=== PATIENT | female | born 1965 | race African-American/Black ===

== ENCOUNTER 2017-01-21 13:21 | Emergency (ER) | payer OTHER ==
[~2017-01-21] VITALS: Ht 157.5 cm; Wt 62.0 kg
[~2017-01-21 13:21] MED LIST: MECL-62 PO; NORT10CA PO; TRAM50TA PO; ZOFR4TAB PO
[2017-01-21] MEDS ORDERED: ALBUAER3 INH (13:32)
[2017-01-21 14:15] VITALS: BP 146/88; PULSE 89; RESP 18; TEMP 98.6; O2SAT 97
[2017-01-21] MEDS ORDERED: SODIUM CHLOR 0.9% 1000 ML INJ 1,000 ML IV SCH (14:20)
--- NOTE | 2017-01-21 14:25 | PD ---
HPI Chief Complaint: Cold / Flu Symptoms Time Seen by Provider: 14:22 Travel History International Travel<30 days: No Contact w/Intl Traveler<30days: No Traveled to known affect area: No History of Present Illness HPI 51-year-old female with a history of migraine headaches, fibromyalgia, Mnire' s disease, asthma presents to the emergency department for evaluation of productive cough for 1 week. The patient states that she is also had nasal congestion, runny nose, eye watering in the right eye, headache, fever, sore throat. States that she had a fever of 101F yesterday. States she has been taking ibuprofen and Tylenol with minimal improvement of symptoms. States that she has a history of migraine headaches and that the headache she has today is typical of her migraines. She also had multiple episodes of nonbloody nonbilious emesis this morning which prompted her to come to the emergency department. She denies any chest pain, shortness of breath, lightheadedness, abdominal pain, diarrhea, constipation, dysuria, weakness. Denies , status post hysterectomy. No other complaints. PFSH Past Medical History Arthritis: No Asthma: Yes Autoimmune Disease: Yes (FIBROMYALGIA) Blood Disorders: No Anxiety: No Depression: No Heart Rhythm Problems: No Cancer: No Cardiovascular Problems: Yes (HTN) High Cholesterol: No Chemotherapy: No Chest Pain: No Congestive Heart Failure: No COPD: No Cerebrovascular Accident: No Diabetes: No Diminished Hearing: No Endocrine: No Fibromyalgia: Yes Gastrointestinal Disorders: Yes GERD: No Glaucoma: No Genitourinary: No Headaches: Yes Hepatitis: No Hiatal Hernia: Yes Hypertension: Yes (NOT CURRENTLY ON MEDS) Immune Disorder: No Implanted Vascular Access Dvce: No Kidney Stones: Yes Medical other: Yes (PANCREATITIS , FIBROMYALGIA) Musculoskeletal: No Neurologic: No Psychiatric: No Reproductive: No Respiratory: Yes (ASTHMA) Immunizations Current: Yes Migraines: Yes Myocardial Infarction: No Pancreatitis: Yes Radiation Therapy: No Renal Failure: No Seizures: No Sickle Cell Disease: No Sleep Apnea: No Thyroid Disease: No Ulcer: No Tetanus Vaccination: > 5 Years Influenza Vaccination: Yes ?: Not LMP: UNK Menopausal: Yes : 5 Para: 4 Miscarriage: 1 Tubal Ligation: Yes Past Surgical History Abdominal Surgery: Yes (CHOL2005) AICD: No Cardiac Surgery: No Section: Yes (X4) Cholecystectomy: Yes Ear Surgery: No Endocrine Surgery: No Eye Surgery: No Genitourinary Surgery: No Gynecologic Surgery: Yes (C-SEC. X4, TOTAL HYSTERECTOMY) Hysterectomy: Yes (FULL) Joint Replacement: No Neurologic Surgery: No Oral Surgery: No Pacemaker: No Thoracic Surgery: No Other Surgery: Yes (2 SINUS SURGERIES) Social History Alcohol Use: No Tobacco Use: No Substance Use: No Allergies-Medications (Allergen,Severity, Reaction): Coded Allergies: Compazine (Verified Allergy, Severe, DYSTONIA, 01/21/17) Reglan (Verified Allergy, Severe, SLURRED SPEECH, 01/21/17) Morphine (Verified Adverse Reaction, Mild, Itching, 01/21/17) Reported Meds & Prescriptions Reported Meds & Active Scripts Active Reported Proair Hfa 8.5 GM Inh (Albuterol Sulfate) 90 Mcg/Act Aer 2 Puff INH Q4-6H PRN 108 mcg/actuation Zofran (Ondansetron HCl) 4 Mg Tab 4 Mg PO Q8HR PRN Meclizine (Meclizine HCl) 25 Mg Tab 25 Mg PO TID PRN Tramadol (Tramadol HCl) 50 Mg Tab 50 Mg PO QID PRN Review of Systems Except as stated in HPI: all other systems reviewed are Neg Physical Exam Narrative GENERAL: Well-nourished and well-developed pleasant patient in no acute distress who is nontoxic appearing. SKIN: Warm and dry. HEAD: Normocephalic and atraumatic. EYES: No injection, drainage, or hyphema noted. PERRLA. EOMI. ENT: No nasal drainage noted. Oropharynx is clear and the TMs are normal with good landmarks. NECK: Supple and the trachea is midline. CARDIOVASCULAR: Regular rate and rhythm. RESPIRATORY: Breath sounds are equal bilaterally with no accessory muscle use, wheezing, rhonchi, or crackles. GASTROINTESTINAL: Abdomen is soft, non-tender, and nondistended. MUSCULOSKELETAL: No obvious deformities, swelling, cyanosis, or ecchymosis is present throughout the upper and lower extremities. Patient has full range of motion without any signs of neurovascular compromise. NEUROLOGICAL: Awake, alert, and oriented. Normal speech and gait. Cranial nerves are grossly intact. Data Data Last Documented VS Vital Signs Date Time Temp Pulse Resp B/P Pulse Ox O2 Delivery O2 Flow Rate FiO2 01/21/17 14:46 69 16 138/84 98 Room Air 01/21/17 14:15 98.6 Orders Complete Blood Count With Diff (01/21/17 14:20) Comprehensive Metabolic Panel (01/21/17 14:20) Lipase (01/21/17 14:20) Iv Access Insert/Monitor (01/21/17 14:20) Ecg Monitoring (01/21/17 14:20) Oximetry (01/21/17 14:20) Ondansetron Inj (Zofran Inj) (01/21/17 14:30) Sodium Chlor 0.9% 1000 Ml Inj (Ns 1000 M (01/21/17 14:20) Sodium Chloride 0.9% Flush (Ns Flush) (01/21/17 14:30) Ketorolac Inj (Toradol Inj) (01/21/17 14:30) Group A Rapid Strep Screen (01/21/17 14:20) Influenzae A/B Antigen (01/21/17 14:20) Strep Culture (Group A) (01/21/17 13:35) Chest, Pa & Lat (01/21/17 15:14) Magnesium Sulfate 1 Gm Premix (Magnesium (01/21/17 16:15) Labs Laboratory Tests Test 01/21/17 14:30 White Blood Count 12.5 TH/MM3 Red Blood Count 4.50 MIL/MM3 Hemoglobin 13.1 GM/DL Hematocrit 40.5 % Mean Corpuscular Volume 89.9 FL Mean Corpuscular Hemoglobin 29.2 PG Mean Corpuscular Hemoglobin 32.5 % Concent Red Cell Distribution Width 14.0 % Platelet Count 371 TH/MM3 Mean Platelet Volume 7.6 FL Neutrophils (%) (Auto) 81.5 % Lymphocytes (%) (Auto) 11.3 % Monocytes (%) (Auto) 5.8 % Eosinophils (%) (Auto) 0.8 % Basophils (%) (Auto) 0.6 % Neutrophils # (Auto) 10.2 TH/MM3 Lymphocytes # (Auto) 1.4 TH/MM3 Monocytes # (Auto) 0.7 TH/MM3 Eosinophils # (Auto) 0.1 TH/MM3 Basophils # (Auto) 0.1 TH/MM3 CBC Comment DIFF FINAL Differential Comment Sodium Level 144 MEQ/L Potassium Level 4.0 MEQ/L Chloride Level 109 MEQ/L Carbon Dioxide Level 29.0 MEQ/L Anion Gap 6 MEQ/L Blood Urea Nitrogen 10 MG/DL Creatinine 0.90 MG/DL Estimat Glomerular Filtration 80 ML/MIN Rate Random Glucose 100 MG/DL Calcium Level 9.2 MG/DL Total Bilirubin 0.2 MG/DL Aspartate Amino Transf 20 U/L (AST/SGOT) Alanine Aminotransferase 20 U/L (ALT/SGPT) Alkaline Phosphatase 89 U/L Total Protein 7.9 GM/DL Albumin 3.8 GM/DL Lipase 119 U/L [facility] Medical Decision Making Medical Screen Exam Complete: Yes Emergency Medical Condition: Yes Differential Diagnosis Viral syndrome versus URI versus migraine headache versus strep versus influenza Narrative Course 51-year-old female resents to the emergency department for evaluation of cough and cold symptoms with migraine headache and a few episodes of vomiting. Patient is afebrile, vital signs are stable. Physical examination is essentially unremarkable. IV access is obtained, labs have been drawn and sent. Patient is administered IV fluids, Zofran and Toradol. CBC shows a slightly elevated white blood count 12.5. CMP is unremarkable. Influenza swab is negative. Stress is negative. Chest x-ray is negative for any acute abnormalities. Patient is reassessed and reports that she is still having a headache. Patient was administered magnesium 1 g IV with improvement of headache. I discussed all results with the patient. History and physical exam findings are consistent with a viral respiratory illness and migraine headache. Discussed supportive care. Patient is advised to follow up as outpatient with her PCP. Patient verbalizes understanding and agreement with treatment plan. I discussed the case with my attending physician Dr. Partida who is aware of the patients history, physical examination findings, and treatment plan. Diagnosis Primary Impression: Migraine headache Qualified Code: G43.709 - Chronic migraine without aura without status migrainosus, not intractable Additional Impression: Viral respiratory illness Referrals: Primary Care Physician Patient Instructions: General Instructions, Migraine Headache (ED), Viral Syndrome (ED) Additional Instructions: Rest. Follow-up with your Primary Care Physician. Return to the ED for any acute worsening of symptoms. Med/Other Pt SpecificInfo: No Change to Meds Disposition: 01 DISCHARGE HOME Condition: Stable Shireen Kebede January 21, 2017 14:25
[2017-01-21] MEDS ORDERED: ONDANSETRON HCL 4 MG/2 ML VIAL IVP ONE (14:30)
[2017-01-21] MEDS ORDERED: SODIUM CHLORIDE 0.9% FLUSH 10 ML FLUSH IV FLUSH PRN (14:30)
[2017-01-21] MEDS ORDERED: KETOROLAC TROMETHAMINE 30 MG/ML (IVP) VIAL IVP ONE (14:30)
[2017-01-21 14:44] VITALS: PULSE 75; RESP 18; O2SAT 98
[2017-01-21 14:46] VITALS: BP 138/84; PULSE 69; RESP 16; O2SAT 98
[2017-01-21 14:51] LABS: AUTOMATED NEUTROPHIL # 10.2 TH/MM3 (1.8-7.7); BASOPHIL # 0.1 TH/MM3 (0-0.2); BASOPHIL % 0.6 % (0.0-2.0); EOSINOPHIL # 0.1 TH/MM3 (0-0.4); EOSINOPHIL % 0.8 % (0.0-4.0); HEMATOCRIT 40.5 % (35.0-46.0); HEMO FLAGS DIFF FINAL; LYMPH % 11.3 % (9.0-44.0); LYMPHOCYTE # 1.4 TH/MM3 (1.0-4.8); MEAN CELL VOLUME 89.9 FL (80.0-100.0); MEAN CORPUSCULAR HEMOGLOBIN 29.2 PG (27.0-34.0); MEAN CORPUSCULAR HGB CONC 32.5 % (32.0-36.0); MONO % 5.8 % (0.0-8.0); NEUT % 81.5 % (16.0-70.0); PLATELET COUNT 371 TH/MM3 (150-450); WHITE BLOOD COUNT 12.5 TH/MM3 (4.0-11.0)
[2017-01-21 15:08] LABS: ANION GAP 6 MEQ/L (5-15); AST (GOT) 20 U/L (15-37); BLOOD UREA NITROGEN 10 MG/DL (7-18); CHLORIDE 109 MEQ/L (98-107); GLOMERULAR FILTRATION RATE 80 ML/MIN (>89); SODIUM (NA) 144 MEQ/L (136-145)
[2017-01-21 15:11] LABS: ALKALINE PHOSPHATASE 89 U/L (45-117); ALT (GPT) 20 U/L (10-53); TOTAL BILIRUBIN ADULT 0.2 MG/DL (0.2-1.0)
--- NOTE | 2017-01-21 15:56 | RADRPT ---
EXAM DATE/TIME: 01/21/2017 15:27 [facility] COMPARISON: No previous studies available for comparison. INDICATIONS : Cough, congestion, fever, cold symptoms for one week MEDICAL HISTORY : Hypertension. Renal calculi. Pancreatitis. bronchitis, migraine SURGICAL HISTORY : Cholecystectomy. Hysterectomy. section. tubal ligation, shoulder surgery ENCOUNTER: Initial ACUITY: 1 week PAIN SCORE: 0/10 LOCATION: Bilateral chest FINDINGS: The cardiac silhouette is normal in transverse diameter. The lungs are free of acute parenchymal opac ity. No effusions are identified. There is mild scoliotic deformity convex to the right. There are flores rgical clips in the right upper quadrant compatible with prior cholecystectomy. CONCLUSION: 1. No acute cardiopulmonary disease. Philip Montgomery MD on January 21, 2017 at 15:54 Board Certified Radiologist. This report was verified electronically.
[2017-01-21] MEDS ORDERED: MAGNESIUM SULFATE 1 GM PREMIX 100 ML IV ONE (16:15)
[2017-01-21 17:31] VITALS: BP 128/80
== END 2017-01-21 17:31 | disposition home or self-care (01) ==
LOC: NEPD 13:21
DX: G43.709 Chronic migraine without aura, not intractable, without status migrainosus (principal); B34.9 Viral infection, unspecified; R05 Cough; R09.81 Nasal congestion; H57.8 Other specified disorders of eye and adnexa; R50.9 Fever, unspecified; R11.10 Vomiting, unspecified; I10 Essential (primary) hypertension; Z86.69 Personal history of other diseases of the nervous system and sense organs; Z87.39 Personal history of other diseases of the musculoskeletal system and connective tissue; Z87.09 Personal history of other diseases of the respiratory system; Z86.79 Personal history of other diseases of the circulatory system; Z87.19 Personal history of other diseases of the digestive system
CPT/HCPCS: 71020; 80053; 83690; 85025; 87081; 87804; 87880; 96361; 96365; 96375; 99284; J1885; J2405; J3475; J7030

== ENCOUNTER 2017-04-30 08:58 | Emergency (ER) | payer OTHER ==
[~2017-04-30] VITALS: Ht 157.5 cm; Wt 65.0 kg
[~2017-04-30 08:58] MED LIST changes: +ALBUAER3 INH; -NORT10CA PO
[2017-04-30 09:06] VITALS: BP 124/75; PULSE 70; RESP 16; TEMP 97.6; O2SAT 100
[2017-04-30] MEDS ORDERED: SODIUM CHLOR 0.9% 1000 ML INJ 1,000 ML IV SCH (09:10)
[2017-04-30] MEDS ORDERED: HYDROmorphone HCL PF 1 MG/ML VIAL IVS ONE (09:15)
[2017-04-30] MEDS ORDERED: ONDANSETRON HCL 4 MG/2 ML VIAL IVP ONE (09:15)
[2017-04-30] MEDS ORDERED: SODIUM CHLORIDE 0.9% FLUSH 10 ML FLUSH IV FLUSH PRN (09:15)
[2017-04-30 09:16] VITALS: PULSE 69; RESP 18; O2SAT 100
--- NOTE | 2017-04-30 09:29 | PD ---
HPI Chief Complaint: Flank/Kidney Pain Time Seen by Provider: 09:06 Travel History International Travel<30 days: No Contact w/Intl Traveler<30days: No Traveled to known affect area: No History of Present Illness HPI This is a 51-year-old female who presents to the emergency department with left- sided flank discomfort, moderate severity, constant, associated with some pain in her left pelvis where she thinks her ovary would be that she does not have an ovary patient had a hysterectomy. Her pain is been going on for 3 days. She has been nauseous and has vomited several times. She denies any fevers or chills. She said she had some blood in her urine that she noticed yesterday and she has had some dysuria. She's had both urinary tract infections and kidney stones in the past. PFSH Past Medical History Arthritis: No Asthma: Yes Autoimmune Disease: Yes (FIBROMYALGIA) Blood Disorders: No Anxiety: No Depression: No Heart Rhythm Problems: No Cancer: No Cardiovascular Problems: Yes (HTN) High Cholesterol: No Chemotherapy: No Chest Pain: No Congestive Heart Failure: No COPD: No Cerebrovascular Accident: No Diabetes: No Diminished Hearing: No Endocrine: No Fibromyalgia: Yes Gastrointestinal Disorders: Yes GERD: No Glaucoma: No Genitourinary: No Headaches: Yes Hepatitis: No Hiatal Hernia: Yes Hypertension: Yes (NOT CURRENTLY ON MEDS) Immune Disorder: No Implanted Vascular Access Dvce: No Kidney Stones: Yes Medical other: Yes (PANCREATITIS , FIBROMYALGIA) Musculoskeletal: No Neurologic: No Psychiatric: No Reproductive: No Respiratory: Yes (ASTHMA) Immunizations Current: Yes Migraines: Yes Myocardial Infarction: No Pancreatitis: Yes Radiation Therapy: No Renal Failure: No Seizures: No Sickle Cell Disease: No Sleep Apnea: No Thyroid Disease: No Ulcer: No Tetanus Vaccination: < 5 Years Influenza Vaccination: No ?: Not Menopausal: Yes : 5 Para: 4 Miscarriage: 1 Ovarian Cysts: Yes Tubal Ligation: Yes Past Surgical History Abdominal Surgery: Yes AICD: No Cardiac Surgery: No Section: Yes (X4) Cholecystectomy: Yes Ear Surgery: No Endocrine Surgery: No Eye Surgery: No Genitourinary Surgery: No Gynecologic Surgery: Yes (C-SEC. X4, TOTAL HYSTERECTOMY) Hysterectomy: Yes (FULL) Joint Replacement: No Neurologic Surgery: No Oral Surgery: No Pacemaker: No Thoracic Surgery: No Other Surgery: Yes (2 SINUS SURGERIES) Social History Alcohol Use: No (PT DENIES) Tobacco Use: No Substance Use: No (PT DENIES ) Allergies-Medications (Allergen,Severity, Reaction): Coded Allergies: metoclopramide (Verified Allergy, Severe, SLURRED SPEECH, 04/30/17) prochlorperazine (Verified Allergy, Severe, DYSTONIA, 04/30/17) morphine (Verified Adverse Reaction, Intermediate, VOMITING, 04/30/17) Reported Meds & Prescriptions Reported Meds & Active Scripts Active Reported Proair Hfa 8.5 GM Inh (Albuterol Sulfate) 90 Mcg/Act Aer 2 Puff INH Q4-6H PRN 108 mcg/actuation Zofran (Ondansetron HCl) 4 Mg Tab 4 Mg PO Q8HR PRN Meclizine (Meclizine HCl) 25 Mg Tab 25 Mg PO TID PRN Tramadol (Tramadol HCl) 50 Mg Tab 50 Mg PO QID PRN Review of Systems Except as stated in HPI: all other systems reviewed are Neg Physical Exam Narrative GENERAL:Well appearing, no acute distress SKIN: Focused skin assessment warm and dry. HEAD: Atraumatic. Normocephalic. EYES: Pupils equal and round. No injection or drainage. ENT: Moist mucous membranes NECK: Trachea midline. CARDIOVASCULAR: Regular rate and rhythm. No murmur appreciated. RESPIRATORY: Clear to auscultation. Breath sounds equal bilaterally. GASTROINTESTINAL: Abdomen tender to palpation in the left lower quadrant with no rebound or guarding. : Left CVA tenderness. MUSCULOSKELETAL: No obvious deformities. NEUROLOGICAL: Awake and alert. No obvious cranial nerve deficits. Moving all extremities. PSYCHIATRIC: Appropriate mood and affect; insight and judgment normal. Data Data Last Documented VS Vital Signs Date Time Temp Pulse Resp B/P (MAP) Pulse Ox O2 Delivery O2 Flow Rate FiO2 04/30/17 10:29 97.9 74 16 139/66 (90) 100 Room Air Orders Orders Complete Blood Count With Diff (04/30/17 09:10) Comprehensive Metabolic Panel (04/30/17 09:10) Lipase (04/30/17 09:10) Urinalysis - C+S If Indicated (04/30/17 09:10) Ct Abd/Pel W/O Iv Contrast (04/30/17 09:10) Iv Access Insert/Monitor (04/30/17 09:10) Ecg Monitoring (04/30/17 09:10) Oximetry (04/30/17 09:10) Ondansetron Inj (Zofran Inj) (04/30/17 09:15) Sodium Chlor 0.9% 1000 Ml Inj (Ns 1000 M (04/30/17 09:10) Sodium Chloride 0.9% Flush (Ns Flush) (04/30/17 09:15) Hydromorphone Pf Inj (Dilaudid Pf Inj) (04/30/17 09:15) Labs Laboratory Tests Test 04/30/17 09:20 White Blood Count 7.9 TH/MM3 Red Blood Count 4.23 MIL/MM3 Hemoglobin 12.7 GM/DL Hematocrit 38.9 % Mean Corpuscular Volume 91.9 FL Mean Corpuscular Hemoglobin 30.0 PG Mean Corpuscular Hemoglobin Concent 32.7 % Red Cell Distribution Width 14.2 % Platelet Count 379 TH/MM3 Mean Platelet Volume 7.7 FL Neutrophils (%) (Auto) 59.0 % Lymphocytes (%) (Auto) 29.6 % Monocytes (%) (Auto) 9.0 % Eosinophils (%) (Auto) 2.0 % Basophils (%) (Auto) 0.4 % Neutrophils # (Auto) 4.7 TH/MM3 Lymphocytes # (Auto) 2.3 TH/MM3 Monocytes # (Auto) 0.7 TH/MM3 Eosinophils # (Auto) 0.2 TH/MM3 Basophils # (Auto) 0.0 TH/MM3 CBC Comment DIFF FINAL Differential Comment Urine Color YELLOW Urine Turbidity CLEAR Urine pH 5.5 Urine Specific [place] 1.018 Urine Protein NEG mg/dL Urine Glucose (UA) NEG mg/dL Urine Ketones NEG mg/dL Urine Occult Blood NEG Urine Nitrite NEG Urine Bilirubin NEG Urine Urobilinogen LESS THAN 2.0 MG/DL Urine Leukocyte Esterase SMALL Urine RBC LESS THAN 1 /hpf Urine WBC LESS THAN 1 /hpf Urine Squamous Epithelial Cells 3 /hpf Urine Hyaline Casts 1 /lpf Microscopic Urinalysis Comment CULT NOT INDICATED Blood Urea Nitrogen 15 MG/DL Creatinine 1.09 MG/DL Random Glucose 71 MG/DL Total Protein 7.3 GM/DL Albumin 3.6 GM/DL Calcium Level 8.3 MG/DL Alkaline Phosphatase 89 U/L Aspartate Amino Transf (AST/SGOT) 25 U/L Alanine Aminotransferase (ALT/SGPT) 31 U/L Total Bilirubin 0.2 MG/DL Sodium Level 139 MEQ/L Potassium Level 3.7 MEQ/L Chloride Level 106 MEQ/L Carbon Dioxide Level 25.7 MEQ/L Anion Gap 7 MEQ/L Estimat Glomerular Filtration Rate 64 ML/MIN Lipase 240 U/L [facility] Medical Decision Making Medical Screen Exam Complete: Yes Emergency Medical Condition: Yes Interpretation(s) Afebrile, no tachycardia, normotensive No leukocytosis Electrolytes are reassuring Urinalysis: No infection CT abdomen and pelvis: No acute process Differential Diagnosis Urinary tract infection, pyelonephritis, nephrolithiasis, musculoskeletal strain Narrative Course This is a 51-year-old female who presents to the emergency department with left- sided pelvic pain radiating to the left back. She has a history of kidney stones and infection in the past. She is placed in a monitor and an IV was established. Labs are obtained which were all reassuring. Urinalysis demonstrates no infection or blood. CT abdomen and pelvis is reassuring. I don 't think she has no emergent etiology of her pain. It may be musculoskeletal. She is discharged on anti-inflammatory's. Diagnosis Primary Impression: Flank pain Patient Instructions: General Instructions Additional Instructions: If you develop severe or worsening abdominal pain, fever>100.4, persistent vomiting or inability to eat or drink return to the emergency department immediately. Follow up with your primary care physician in 1-2 days for a check-up. Med/Other Pt SpecificInfo: Prescription(s) given Scripts Naproxen (Naproxen) 500 Mg Tab 500 MG PO BID Y for PAIN SCALE 4 TO 10, #20 TAB 0 Refills Prov: Delfina Koch MD 04/30/17 Disposition: 01 DISCHARGE HOME Condition: Stable Delfina Koch MD Apr 30, 2017 09:29
[2017-04-30 09:44] LABS: AUTOMATED NEUTROPHIL # 4.7 TH/MM3 (1.8-7.7); BASOPHIL % 0.4 % (0.0-2.0); EOSINOPHIL # 0.2 TH/MM3 (0-0.4); HEMATOCRIT 38.9 % (35.0-46.0); HEMO FLAGS DIFF FINAL; LYMPH % 29.6 % (9.0-44.0); LYMPHOCYTE # 2.3 TH/MM3 (1.0-4.8); MEAN CELL VOLUME 91.9 FL (80.0-100.0); MEAN CORPUSCULAR HGB CONC 32.7 % (32.0-36.0); PLATELET COUNT 379 TH/MM3 (150-450); RED BLOOD COUNT 4.23 MIL/MM3 (4.00-5.30); RED CELL DISTRIBUTION WIDTH 14.2 % (11.6-17.2); WHITE BLOOD COUNT 7.9 TH/MM3 (4.0-11.0)
[2017-04-30 09:53] LABS: BLOOD, URINE NEG (NEG); GLUCOSE,URINE NEG (NEG); HYALINE CAST, URINE 1 /lpf (RARE); KETONE, URINE NEG (NEG); NITRITE,URINE NEG (NEG); PH, URINE 5.5 (5.0-8.5); SQUAMOUS EPITHELIAL CELL URINE 3 /hpf (0-5); URINE COLOR YELLOW (YELLW/STRAW)
[2017-04-30 09:55] LABS: ANION GAP 7 MEQ/L (5-15); AST (GOT) 25 U/L (15-37); BICARBONATE 25.7 MEQ/L (21.0-32.0); BLOOD UREA NITROGEN 15 MG/DL (7-18); CHLORIDE 106 MEQ/L (98-107); GLOMERULAR FILTRATION RATE 64 ML/MIN (>89); POTASSIUM 3.7 MEQ/L (3.5-5.1); SODIUM (NA) 139 MEQ/L (136-145)
[2017-04-30 09:57] LABS: ALT (GPT) 31 U/L (10-53)
[2017-04-30 09:59] LABS: ALKALINE PHOSPHATASE 89 U/L (45-117); TOTAL BILIRUBIN ADULT 0.2 MG/DL (0.2-1.0)
[2017-04-30 10:02] LABS: COMMENT (UR) CULT NOT INDICATED; CULTURE IF INDICATED CULT NOT INDICATED
[2017-04-30 10:29] VITALS: BP 139/66; PULSE 74; RESP 16; TEMP 97.9; O2SAT 100
--- NOTE | 2017-04-30 10:34 | RADRPT ---
EXAM DATE/TIME: 04/30/2017 09:46 [facility] COMPARISON: No previous studies available for comparison. INDICATIONS : Left flank pain, nausea and vomiting. ORAL CONTRAST: No oral contrast ingested. RADIATION DOSE: 6.06 CTDIvol (mGy) MEDICAL HISTORY : Pancreatitis. Hernia, hiatal. Renal calculi. SURGICAL HISTORY : Hysterectomy. Cholecystectomy. section. ENCOUNTER: Initial ACUITY: 3 days PAIN SCALE: 7/10 LOCATION: Left flank TECHNIQUE: Volumetric scanning of the abdomen and pelvis was performed. Using automated exposure control and ad justment of the mA and/or kV according to patient size, radiation dose was kept as low as reasonably achievable to obtain optimal diagnostic quality images. DICOM format image data is available electro nically for review and comparison. FINDINGS: LOWER LUNGS: The visualized lower lungs are clear. LIVER: Homogeneous density without lesion. There is no dilation of the biliary tree. Gallbladder surgically absent. SPLEEN: Normal size without lesion. PANCREAS: Within normal limits. KIDNEYS: Normal in size and shape. There is no mass, stone, or hydronephrosis. ADRENAL GLANDS: Within normal limits. VASCULAR: There is no aortic aneurysm. BOWEL/MESENTERY: The stomach, small bowel, and colon demonstrate no acute abnormality. There is no free intraperitone al air or fluid. ABDOMINAL WALL: Within normal limits. RETROPERITONEUM: There is no lymphadenopathy. BLADDER: No wall thickening or mass. REPRODUCTIVE: Within normal limits. INGUINAL: There is no lymphadenopathy or hernia. MUSCULOSKELETAL: Within normal limits for patient age. CONCLUSION: No evidence of kidney stones or hydronephrosis Bruno Kulkarni MD on April 30, 2017 at 10:29 Board Certified Radiologist. This report was verified electronically.
[2017-04-30] MEDS ORDERED: NAPR500T PO (10:42)
[2017-04-30 10:54] VITALS: BP 122/81; TEMP 97.8
[2017-04-30 13:48] LABS: CHLAMYDIA PCR NOT DETECTED (NOT DETECT); NEISSERIA PCR NOT DETECTED (NOT DETECT)
== END 2017-04-30 10:54 | disposition home or self-care (01) ==
LOC: NEPC 08:58
DX: R10.9 Unspecified abdominal pain (principal); R10.2 Pelvic and perineal pain; M54.9 Dorsalgia, unspecified; R11.2 Nausea with vomiting, unspecified; R31.9 Hematuria, unspecified; R30.0 Dysuria; J45.909 Unspecified asthma, uncomplicated; M79.7 Fibromyalgia; I10 Essential (primary) hypertension
CPT/HCPCS: 74176; 80053; 81001; 83690; 85025; 87210; 87491; 87591; 96361; 96374; 96375; 99285; J1170; J2405; J7030

== ENCOUNTER 2017-06-20 10:24 | Emergency (ER) | payer OTHER ==
[~2017-06-20] VITALS: Ht 157.5 cm; Wt 66.0 kg
[~2017-06-20 10:24] MED LIST changes: +NAPR500T PO
[2017-06-20 10:26] VITALS: BP 132/86; PULSE 69; RESP 15; TEMP 98.4; O2SAT 98
--- NOTE | 2017-06-20 12:02 | PD ---
HPI Chief Complaint: Musculoskeletal Complaint Time Seen by Provider: 11:47 Travel History International Travel<30 days: No Contact w/Intl Traveler<30days: No Traveled to known affect area: No History of Present Illness HPI 51-year-old female presents to the emergency room for evaluation of acute on chronic left shoulder pain. Patient states about one year ago she had 2 surgeries on her shoulder. The first was to fix the rotator cuff and the second to fix tear in the labrum as well as remove the cyst. Patient was doing well until about 3 days ago when she woke up with severe left shoulder pain. Pain is localized to the left anterior humeral head with radiation posteriorly. It is worse with any range of motion, especially if she lifts her arm overhead. Denies trauma or injury. She denies paresthesias. States any movement causes pain to radiate down her left arm. Patient denies any chest pain or shortness of breath. States she takes a deep breath, it makes her pain worse. She has been taking ibuprofen and her prescribed tramadol for pain without significant relief in symptoms. She came to the emergency room hoping to get an MRI of her shoulder. She takes tramadol for fibromyalgia and meclizine for vertigo. PFSH Past Medical History Arthritis: No Asthma: Yes Autoimmune Disease: Yes (FIBROMYALGIA) Blood Disorders: No Anxiety: No Depression: No Heart Rhythm Problems: No Cancer: No Cardiovascular Problems: Yes (HTN) High Cholesterol: No Chemotherapy: No Chest Pain: No Congestive Heart Failure: No COPD: No Cerebrovascular Accident: No Diabetes: No Diminished Hearing: No Endocrine: No Fibromyalgia: Yes Gastrointestinal Disorders: Yes GERD: No Glaucoma: No Genitourinary: No Headaches: Yes Hepatitis: No Hiatal Hernia: Yes Hypertension: Yes (NOT CURRENTLY ON MEDS) Immune Disorder: No Implanted Vascular Access Dvce: No Kidney Stones: Yes Musculoskeletal: No Neurologic: No Psychiatric: No Reproductive: No Respiratory: Yes (ASTHMA) Immunizations Current: Yes Migraines: Yes Myocardial Infarction: No Pancreatitis: Yes Radiation Therapy: No Renal Failure: No Seizures: No Sickle Cell Disease: No Sleep Apnea: No Thyroid Disease: No Ulcer: No ?: Unknown Menopausal: Yes : 5 Para: 4 Miscarriage: 1 Ovarian Cysts: Yes Tubal Ligation: Yes Past Surgical History Abdominal Surgery: Yes AICD: No Cardiac Surgery: No Section: Yes (X4) Cholecystectomy: Yes Ear Surgery: No Endocrine Surgery: No Eye Surgery: No Genitourinary Surgery: No Gynecologic Surgery: Yes (C-SEC. X4, TOTAL HYSTERECTOMY) Hysterectomy: Yes (FULL) Joint Replacement: No Neurologic Surgery: No Oral Surgery: No Pacemaker: No Thoracic Surgery: No Other Surgery: Yes (2 SINUS SURGERIES) Social History Alcohol Use: No (PT DENIES) Tobacco Use: No Substance Use: No (PT DENIES ) Allergies-Medications (Allergen,Severity, Reaction): Coded Allergies: metoclopramide (Verified Allergy, Severe, SLURRED SPEECH, 06/20/17) prochlorperazine (Verified Allergy, Severe, DYSTONIA, 06/20/17) morphine (Verified Adverse Reaction, Intermediate, VOMITING, 06/20/17) Reported Meds & Prescriptions Reported Meds & Active Scripts Active Reported Proair Hfa 8.5 GM Inh (Albuterol Sulfate) 90 Mcg/Act Aer 2 Puff INH Q4-6H PRN 108 mcg/actuation Zofran (Ondansetron HCl) 4 Mg Tab 4 Mg PO Q8HR PRN Meclizine (Meclizine HCl) 25 Mg Tab 25 Mg PO TID PRN Tramadol (Tramadol HCl) 50 Mg Tab 50 Mg PO QID PRN Review of Systems Except as stated in HPI: all other systems reviewed are Neg Physical Exam Narrative GENERAL: Well-nourished, well-developed female in no acute distress. Afebrile. Ambulatory. SKIN: Focused skin assessment warm/dry. HEAD: Normocephalic. EYES: No scleral icterus. No injection or drainage. NECK: Supple, trachea midline. No JVD or lymphadenopathy. CARDIOVASCULAR: Regular rate and rhythm without murmurs, gallops, or rubs. RESPIRATORY: Breath sounds equal bilaterally. No accessory muscle use. MUSCULOSKELETAL: No cyanosis. No edema. Limited abduction and internal and external rotation of the shoulder secondary to pain. 2+ radial pulse. Radial, ulnar, and median nerves intact. Strength 5/5 extremity. Tenderness to palpation of left anterior humeral head. Data Data Last Documented VS Vital Signs Date Time Temp Pulse Resp B/P (MAP) Pulse Ox O2 Delivery O2 Flow Rate FiO2 06/20/17 10:26 98.4 69 15 132/86 (101) 98 MDM Medical Decision Making Medical Screen Exam Complete: Yes Emergency Medical Condition: Yes Medical Record Reviewed: Yes Differential Diagnosis Chronic pain, arthritis, calcific tendinopathy, tendinitis, rotator cuff injury , extrinsic etiology unlikely Narrative Course 51-year-old female presents to the emergency room for evaluation of acute on chronic left shoulder pain. Patient had 2 surgeries in her shoulder one year ago. States she woke up with pain 4 days ago. She has been taking over-the- counter ibuprofen and prescribed tramadol without any relief. Denies paresthesias, trauma, or injury. Left upper extremity is neurovascularly intact with 2+ radial pulse. Radial, ulnar, and median nerves intact. There is extreme tenderness to palpation of the left anterior humeral head. Limited range of motion secondary to pain. Patient can abduct to approximately 90; anything over the head is too painful. Likely tendinitis, arthritis, or reinjury of the rotator cuff. Patient was given a sling for the next few days but highly encouraged to maintain range of motion to prevent frozen shoulder. States she has had that in the past and knows to continue moving the shoulder. She was told to follow-up with her orthopedist or primary care physician for outpatient imaging or return for worsening symptoms. She understands and agrees to plan. Diagnosis Primary Impression: Left shoulder pain Qualified Codes: M25.512 - Pain in left shoulder Referrals: Orthopedist Additional Instructions: Rest and drink plenty of fluids. Use sling for the next 2 days. Do not use for greater than 2 days to prevent worsening of shoulder pain. Take ibuprofen with food as directed, as needed for pain. Apply ice to the affected area for 20 minutes at a time, as needed for pain and swelling. Follow-up with a primary care physician. Return to the emergency room for worsening symptoms. Disposition: 01 DISCHARGE HOME Condition: Stable Jyoti Avila Jun 20, 2017 12:01
== END 2017-06-20 12:25 | disposition home or self-care (01) ==
LOC: NEPK 10:24
DX: M25.512 Pain in left shoulder (principal); G89.29 Other chronic pain; M79.7 Fibromyalgia
CPT/HCPCS: 99282

== ENCOUNTER 2018-01-28 14:39 | Emergency (ER) | payer OTHER ==
[~2018-01-28 14:39] MED LIST changes: -NAPR500T PO
[2018-01-28 14:53] VITALS: BP 146/77; PULSE 88; RESP 17; TEMP 99.1; O2SAT 99
[2018-01-28 15:23] VITALS: BP 133/81; PULSE 70; RESP 18; O2SAT 97
[2018-01-28] MEDS ORDERED: methylPREDNISolone SOD SUCC 125 MG/2 ML VIAL IV PUSH ONE (15:30)
[2018-01-28] MEDS ORDERED: SODIUM CHLOR 0.9% 1000 ML INJ 1,000 ML IV ONE (15:30)
[2018-01-28] MEDS ORDERED: SODIUM CHLORIDE 0.9% FLUSH 10 ML FLUSH IVF PRN (15:30)
[2018-01-28 15:33] VITALS: O2SAT 97
--- NOTE | 2018-01-28 15:35 | PD ---
HPI Chief Complaint: Respiratory Distress Time Seen by Provider: 15:12 Travel History International Travel<30 days: No Contact w/Intl Traveler<30days: No Traveled to known affect area: No History of Present Illness HPI Patient is a 52-year-old female with history of hypertension and asthma, presents to the ER with complaints of productive cough/wheezing. Patient reports that symptoms have been ongoing since yesterday. Overall, she has not been feeling well and has been feeling congested. Reports that she has been having coughing fits and coughed up some blood today. Reports that her chest feels tight - symptoms are worse with coughing. Reports no sick contacts, no recent travels/trips. PFSH Past Medical History Arthritis: No Asthma: Yes Autoimmune Disease: Yes (FIBROMYALGIA) Blood Disorders: No Anxiety: No Depression: No Heart Rhythm Problems: No Cancer: No Cardiovascular Problems: Yes (HTN) High Cholesterol: No Chemotherapy: No Chest Pain: No Congestive Heart Failure: No COPD: No Cerebrovascular Accident: No Diabetes: No Diminished Hearing: No Endocrine: No Fibromyalgia: Yes Gastrointestinal Disorders: Yes GERD: No Glaucoma: No Genitourinary: No Headaches: Yes Hepatitis: No Hiatal Hernia: Yes Hypertension: Yes Immune Disorder: No Implanted Vascular Access Dvce: No Kidney Stones: Yes Medical other: Yes (PANCREATITIS , FIBROMYALGIA) Musculoskeletal: No Neurologic: No Psychiatric: No Reproductive: No Respiratory: Yes (ASTHMA) Immunizations Current: Yes Migraines: Yes Myocardial Infarction: No Pancreatitis: Yes Radiation Therapy: No Renal Failure: No Seizures: No Sickle Cell Disease: No Sleep Apnea: No Thyroid Disease: No Ulcer: No Tetanus Vaccination: < 5 Years Influenza Vaccination: No ?: Not Menopausal: Yes : 5 Para: 4 Miscarriage: 1 Ovarian Cysts: Yes Tubal Ligation: Yes Past Surgical History Abdominal Surgery: Yes AICD: No Cardiac Surgery: No Section: Yes (X4) Cholecystectomy: Yes Ear Surgery: No Endocrine Surgery: No Eye Surgery: No Genitourinary Surgery: No Gynecologic Surgery: Yes (C-SEC. X4, TOTAL HYSTERECTOMY) Hysterectomy: Yes (FULL) Joint Replacement: No Neurologic Surgery: No Oral Surgery: No Pacemaker: No Thoracic Surgery: No Other Surgery: Yes (2 SINUS SURGERIES) Social History Alcohol Use: No (PT DENIES) Tobacco Use: No Substance Use: No (PT DENIES ) Allergies-Medications (Allergen,Severity, Reaction): Coded Allergies: metoclopramide (Verified Allergy, Severe, SLURRED SPEECH, 06/20/17) prochlorperazine (Verified Allergy, Severe, DYSTONIA, 06/20/17) morphine (Verified Adverse Reaction, Intermediate, VOMITING, 06/20/17) Reported Meds & Prescriptions Reported Meds & Active Scripts Active Tessalon Perles (Benzonatate) 100 Mg Cap 200 Mg PO TID PRN Prednisone 20 Mg Tab 20 Mg PO BID 5 Days Proair Hfa 8.5 GM Inh (Albuterol Sulfate) 90 Mcg/Act Aer 2 Puff INH Q4-6H PRN 108 mcg/actuation Azithromycin 500 Mg Tab 500 Mg PO DAILY Reported Proair Hfa 8.5 GM Inh (Albuterol Sulfate) 90 Mcg/Act Aer 2 Puff INH Q4-6H PRN 108 mcg/actuation Zofran (Ondansetron HCl) 4 Mg Tab 4 Mg PO Q8HR PRN Meclizine (Meclizine HCl) 25 Mg Tab 25 Mg PO TID PRN Tramadol (Tramadol HCl) 50 Mg Tab 50 Mg PO QID PRN Review of Systems General / Constitutional: No: Fever Eyes: No: Visual changes HENT: No: Headaches Cardiovascular: Positive: Chest Pain or Discomfort, No: Palpitations, Irregular Rhythm Respiratory: Positive: Cough, Shortness of Breath, Wheezing Gastrointestinal: No: Abdominal Pain Genitourinary: No: Dysuria Musculoskeletal: No: Pain Skin: No Rash Neurologic: No: Weakness Psychiatric: No: Depression Endocrine: No: Polydipsia Hematologic/Lymphatic: No: Easy Bruising Physical Exam Narrative GENERAL: Mild distress SKIN: Focused skin assessment warm/dry. HEAD: Atraumatic. Normocephalic. EYES: Pupils equal and round. No scleral icterus. No injection or drainage. ENT: No nasal bleeding or discharge. Mucous membranes pink and moist. NECK: Trachea midline. No JVD. CARDIOVASCULAR: Regular rate and rhythm. No murmur appreciated. RESPIRATORY: No accessory muscle use. Clear to auscultation. Breath sounds equal bilaterally. GASTROINTESTINAL: Abdomen soft, non-tender, nondistended. Hepatic and splenic margins not palpable. MUSCULOSKELETAL: No obvious deformities. No clubbing. No cyanosis. No edema. NEUROLOGICAL: Awake and alert. No obvious cranial nerve deficits. Motor grossly within normal limits. Normal speech. PSYCHIATRIC: Appropriate mood and affect; insight and judgment normal. Data Data Last Documented VS Vital Signs Date Time Temp Pulse Resp B/P (MAP) Pulse Ox O2 Delivery O2 Flow Rate FiO2 01/28/18 15:33 97 Room Air 01/28/18 15:23 70 18 01/28/18 14:53 99.1 Orders Orders Electrocardiogram (01/28/18 14:55) Complete Blood Count With Diff (01/28/18 15:22) Comprehensive Metabolic Panel (01/28/18 15:22) D-Dimer (01/28/18 15:22) Prothrombin Time / Inr (Pt) (01/28/18 15:22) Act Partial Throm Time (Ptt) (01/28/18 15:22) Ecg Monitoring (01/28/18 15:22) Iv Access Insert/Monitor (01/28/18 15:22) Oximetry (01/28/18 15:22) Sodium Chloride 0.9% Flush (Ns Flush) (01/28/18 15:30) Chest, Pa & Lat (01/28/18 15:22) Methylprednisolone So Succ Inj (Solumedr (01/28/18 15:30) Albuterol-Ipratropium Neb (Duoneb Neb) (01/28/18 15:30) Sodium Chlor 0.9% 1000 Ml Inj (Ns 1000 M (01/28/18 15:30) Azithromycin (Zithromax) (01/28/18 17:15) Labs Laboratory Tests Test 01/28/18 15:30 White Blood Count 12.4 TH/MM3 Red Blood Count 4.25 MIL/MM3 Hemoglobin 12.8 GM/DL Hematocrit 38.5 % Mean Corpuscular Volume 90.5 FL Mean Corpuscular Hemoglobin 30.1 PG Mean Corpuscular Hemoglobin Concent 33.3 % Red Cell Distribution Width 14.0 % Platelet Count 433 TH/MM3 Mean Platelet Volume 7.3 FL Neutrophils (%) (Auto) 75.2 % Lymphocytes (%) (Auto) 16.4 % Monocytes (%) (Auto) 7.1 % Eosinophils (%) (Auto) 0.8 % Basophils (%) (Auto) 0.5 % Neutrophils # (Auto) 9.3 TH/MM3 Lymphocytes # (Auto) 2.0 TH/MM3 Monocytes # (Auto) 0.9 TH/MM3 Eosinophils # (Auto) 0.1 TH/MM3 Basophils # (Auto) 0.1 TH/MM3 CBC Comment DIFF FINAL Differential Comment Prothrombin Time 11.9 SEC Prothromb Time International Ratio 1.2 RATIO Activated Partial Thromboplast Time 26.6 SEC D-Dimer Quantitative (PE/DVT) LESS THAN 0.19 MG/L FEU Blood Urea Nitrogen 18 MG/DL Creatinine 0.93 MG/DL Random Glucose 92 MG/DL Total Protein 7.6 GM/DL Albumin 3.7 GM/DL Calcium Level 8.4 MG/DL Alkaline Phosphatase 89 U/L Aspartate Amino Transf (AST/SGOT) 18 U/L Alanine Aminotransferase (ALT/SGPT) 20 U/L Total Bilirubin 0.1 MG/DL Sodium Level 143 MEQ/L Potassium Level 4.1 MEQ/L Chloride Level 107 MEQ/L Carbon Dioxide Level 29.0 MEQ/L Anion Gap 7 MEQ/L Estimat Glomerular Filtration Rate 77 ML/MIN MDM Medical Decision Making Medical Screen Exam Complete: Yes Emergency Medical Condition: Yes Medical Record Reviewed: Yes Interpretation(s) EKG at 1506: NSR at 76bpm, qt/qtc: 359/390, no acute st or t wave changes Vital Signs Date Time Temp Pulse Resp B/P (MAP) Pulse Ox O2 Delivery O2 Flow Rate FiO2 01/28/18 15:23 70 18 133/81 (98) 97 Room Air 01/28/18 15:19 76 20 97 Room Air 01/28/18 14:53 99.1 88 17 146/77 (100) 99 Differential Diagnosis pneumonia, bronchitis, PE, electrolyte abnormality, TB Narrative Course patient is a 52 year old female who presents to the ER with complaints of productive cough with blood tinged sputum which began yesterday. Reports that her chest hurts her from her coughing fits. Denies any sick contacts. During the course of the patients emergency department visit, the patients history, examination, and differential diagnosis were reviewed with the patient. The patient was placed on a solar development engineer with oximetry and frequent blood pressure monitoring. The patient had an IV access obtained and blood work sent for analysis. The patient was initially provided IV steroids, neb treatments as well as IVF. The patients laboratory studies were reviewed and remarkable for Laboratory Tests Test 01/28/18 15:30 White Blood Count 12.4 TH/MM3 (4.0-11.0) Red Blood Count 4.25 MIL/MM3 (4.00-5.30) Hemoglobin 12.8 GM/DL (11.6-15.3) Hematocrit 38.5 % (35.0-46.0) Mean Corpuscular Volume 90.5 FL (80.0-100.0) Mean Corpuscular Hemoglobin 30.1 PG (27.0-34.0) Mean Corpuscular Hemoglobin Concent 33.3 % (32.0-36.0) Red Cell Distribution Width 14.0 % (11.6-17.2) Platelet Count 433 TH/MM3 (150-450) Mean Platelet Volume 7.3 FL (7.0-11.0) Neutrophils (%) (Auto) 75.2 % (16.0-70.0) Lymphocytes (%) (Auto) 16.4 % (9.0-44.0) Monocytes (%) (Auto) 7.1 % (0.0-8.0) Eosinophils (%) (Auto) 0.8 % (0.0-4.0) Basophils (%) (Auto) 0.5 % (0.0-2.0) Neutrophils # (Auto) 9.3 TH/MM3 (1.8-7.7) Lymphocytes # (Auto) 2.0 TH/MM3 (1.0-4.8) Monocytes # (Auto) 0.9 TH/MM3 (0-0.9) Eosinophils # (Auto) 0.1 TH/MM3 (0-0.4) Basophils # (Auto) 0.1 TH/MM3 (0-0.2) CBC Comment DIFF FINAL Differential Comment Prothrombin Time 11.9 SEC (9.8-11.6) Prothromb Time International Ratio 1.2 RATIO Activated Partial Thromboplast Time 26.6 SEC (24.3-30.1) D-Dimer Quantitative (PE/DVT) LESS THAN 0.19 MG/L FEU Blood Urea Nitrogen 18 MG/DL (7-18) Creatinine 0.93 MG/DL (0.50-1.00) Random Glucose 92 MG/DL (74-106) Total Protein 7.6 GM/DL (6.4-8.2) Albumin 3.7 GM/DL (3.4-5.0) Calcium Level 8.4 MG/DL (8.5-10.1) Alkaline Phosphatase 89 U/L (45-117) Aspartate Amino Transf (AST/SGOT) 18 U/L (15-37) Alanine Aminotransferase (ALT/SGPT) 20 U/L (10-53) Total Bilirubin 0.1 MG/DL (0.2-1.0) Sodium Level 143 MEQ/L (136-145) Potassium Level 4.1 MEQ/L (3.5-5.1) Chloride Level 107 MEQ/L (98-107) Carbon Dioxide Level 29.0 MEQ/L (21.0-32.0) Anion Gap 7 MEQ/L (5-15) Estimat Glomerular Filtration Rate 77 ML/MIN (>89) Radiology studies were reviewed and remarkable for Last Impressions Chest X-Ray 01/28/18 1522 Signed Impressions: CONCLUSION: No acute cardiopulmonary disease. There is no evidence of pneumonia. Labs and studies reviewed, patient with no evidence of pneumonia on x-ray of the chest. Patient with most likely acute bronchitis. Plan to treat her with steroids, albuterol as well as antibiotics. Patient will follow-up with her primary care doctor, she will return to the emergency room as needed. Diagnosis Primary Impression: Acute bronchitis Qualified Codes: J20.9 - Acute bronchitis, unspecified Patient Instructions: General Instructions Additional Instructions: Please provide patient with a copy of their lab work and studies at discharge* * Please follow up with your primary care doctor in 2-3 days Return to the ER if symptoms worsen or progress Return to the ER as needed Please take all medications as prescribed Med/Other Pt SpecificInfo: Prescription(s) given Scripts Ondansetron (Zofran) 4 Mg Tab 4 MG PO Q6HR Y for NAUSEA OR VOMITING, #12 TAB 0 Refills Prov: Thea Duffy DO 01/28/18 Benzonatate (Tessalon Perles) 100 Mg Cap 200 MG PO TID Y for COUGH, #30 CAP 0 Refills Prov: Thea Duffy DO 01/28/18 Prednisone (Prednisone) 20 Mg Tab 20 MG PO BID for 5 Days, #10 TAB 0 Refills Prov: Thea Duffy DO 01/28/18 Albuterol 8.5 GM Inh (Proair Hfa 8.5 GM Inh) 90 Mcg/Act Aer 2 PUFF INH Q4-6H Y for SHORTNESS OF BREATH, #1 INHALER 0 Refills 108 mcg/actuation Prov: Thea Duffy DO 01/28/18 Azithromycin (Azithromycin) 500 Mg Tab 500 MG PO DAILY for Infection, #5 TAB 0 Refills Prov: Thea Duffy DO 01/28/18 Disposition: 01 DISCHARGE HOME Condition: Stable Thea Duffy DO January 28, 2018 15:35
[2018-01-28] MEDS: RESP: ALBUTEROL 2.5 MG/IPRATROPIUM 0.5 MG NEB (SCH) INH ×2 (15:36→15:37)
[2018-01-28 15:52] LABS: AUTOMATED NEUTROPHIL # 9.3 TH/MM3 (1.8-7.7); BASOPHIL # 0.1 TH/MM3 (0-0.2); BASOPHIL % 0.5 % (0.0-2.0); EOSINOPHIL # 0.1 TH/MM3 (0-0.4); EOSINOPHIL % 0.8 % (0.0-4.0); HEMATOCRIT 38.5 % (35.0-46.0); HEMOGLOBIN 12.8 GM/DL (11.6-15.3); LYMPH % 16.4 % (9.0-44.0); MEAN CELL VOLUME 90.5 FL (80.0-100.0); MEAN CORPUSCULAR HEMOGLOBIN 30.1 PG (27.0-34.0); MEAN CORPUSCULAR HGB CONC 33.3 % (32.0-36.0); MEAN PLATELET VOLUME 7.3 FL (7.0-11.0); MONO % 7.1 % (0.0-8.0); MONOCYTE # 0.9 TH/MM3 (0-0.9); NEUT % 75.2 % (16.0-70.0); PLATELET COUNT 433 TH/MM3 (150-450); RED BLOOD COUNT 4.25 MIL/MM3 (4.00-5.30); WHITE BLOOD COUNT 12.4 TH/MM3 (4.0-11.0)
[2018-01-28 16:07] LABS: INTERNATIONAL NORMALIZED RATIO 1.2 RATIO; PROTHROMBIN TIME - PATIENT 11.9 SEC (9.8-11.6)
[2018-01-28 16:08] LABS: D-DIMER LESS THAN 0.19 MG/L FEU (0.00-0.50)
[2018-01-28 16:21] LABS: ALBUMIN 3.7 GM/DL (3.4-5.0); AST (GOT) 18 U/L (15-37); BLOOD UREA NITROGEN 18 MG/DL (7-18); CALCIUM 8.4 MG/DL (8.5-10.1); CHLORIDE 107 MEQ/L (98-107); CREATININE 0.93 MG/DL (0.50-1.00); GLOMERULAR FILTRATION RATE 77 ML/MIN (>89); GLUCOSE,RANDOM 92 MG/DL (74-106); SODIUM (NA) 143 MEQ/L (136-145)
[2018-01-28 16:25] LABS: ALKALINE PHOSPHATASE 89 U/L (45-117); ALT (GPT) 20 U/L (10-53); TOTAL BILIRUBIN ADULT 0.1 MG/DL (0.2-1.0); TOTAL PROTEIN 7.6 GM/DL (6.4-8.2)
--- NOTE | 2018-01-28 16:50 | RADRPT ---
EXAM DATE: 01/28/2018 4:47 PM EDT AGE/SEX: 52 years / Female INDICATIONS: Coughing with blood and chest pain. CLINICAL DATA: This is the patient's initial encounter. Patient reports that signs and symptoms have been present for 2 days and indicates a pain score of 3/10. MEDICAL/SURGICAL HISTORY: Asthma. None. [place] [facility] [place]. . FINDINGS: PA and lateral views of the chest demonstrate the lungs to be symmetrically aerated without evidence of mass, infiltrate or effusion. The cardiomediastinal contours are unremarkable. Osseous structures are intact. The patient is again noted to be status post cholecystectomy. CONCLUSION: No acute cardiopulmonary disease. There is no evidence of pneumonia. Electronically signed by: Mahamed Raza MD 01/28/2018 4:49 PM EDT
[2018-01-28] MEDS ORDERED: BENZ100 PO (17:09)
[2018-01-28] MEDS ORDERED: PRED20 PO (17:09)
[2018-01-28] MEDS ORDERED: AZIT500T2 PO (17:09)
[2018-01-28] MEDS ORDERED: ALBUAER3 INH (17:09)
[2018-01-28] MEDS ORDERED: ZOFR4TAB PO (17:12)
[2018-01-28] MEDS ORDERED: AZITHROMYCIN 250 MG TAB PO ONE (17:15)
[2018-01-28] MEDS ORDERED: KETOROLAC TROMETHAMINE 30 MG/ML (IVP) VIAL IV PUSH ONE (17:15)
--- NOTE | 2018-01-30 08:37 | EKG ---
Date Performed: 01/28/2018 Time Performed: 15:06:52 PTAGE: 52 years EKG: Sinus rhythm POSSIBLE LEFT ATRIAL ENLARGEMENT CONSIDER SEPTAL MYOCARDIAL INFARCTION, AGE INDETERMINATE ABNORMAL E CG PREVIOUS TRACING :02/20/16 DOCTOR: Benjamín Rodriguez Interpretating Date/Time 01/30/2018 08:36:43
== END 2018-01-28 17:56 | disposition home or self-care (01) ==
LOC: NEPC 14:39
DX: J20.9 Acute bronchitis, unspecified (principal); I10 Essential (primary) hypertension; M79.7 Fibromyalgia; Z79.899 Other long term (current) drug therapy
CPT/HCPCS: 71046; 80053; 85025; 85379; 85610; 85730; 93005; 94640; 94664; 96361; 96374; 96375; 99285; J1885; J2930; J7030